=== PATIENT | male | born 1990 | race Caucasian/White ===

== ENCOUNTER 2017-07-05 19:20 | Emergency (ER) | payer OTHER ==
--- NOTE | 2017-07-05 19:36 | ED.PDOC ---
History of Present Illness - General Chief Complaint: Upper Extremity Injury Stated Complaint: pain /swelling index finger Time Seen by Provider: 07/05/17 19:29 Source: patient Exam Limitations: no limitations Additional Information: ERROR WRONG FORMAT - History of Present Illness Initial Comments: Chuck Son 26 y/o male stated that oil rig chain snapped and was hit on the right index finger 2 days ago.Had throbbing pain/swelling distal phalanx right index finger. Occurred: other - 2 days ago Allergies/Adverse Reactions: Allergies NO KNOWN ALLERGY Allergy (Unverified 10/13/12 09:15) Home Medications: Ambulatory Orders Ibuprofen 800 mg PO TID #30 tab 07/05/17 Family Medical History - Family History Father Family History: Unknown Departure - Departure Clinical Impression: Fracture, finger, distal phalanx Qualifiers: Encounter type: initial encounter Finger: index finger Fracture type: closed Fracture alignment: nondisplaced Laterality: right Qualified Code(s): S62.660A - Nondisplaced fracture of distal phalanx of right index finger, initial encounter for closed fracture Condition: Good Instructions: Finger Fracture, DI for Finger Fracture Prescriptions: Ibuprofen 800 mg PO TID #30 tab Home Medications: Ambulatory Orders Ibuprofen 800 mg PO TID #30 tab 07/05/17 Additional Instructions: Need to follow up with work russell Zambrano/Orthopedist in am 07/05/2017 make appointment am OFF WORK UNTIL RELEASED BY WORKERS RUSSELL ZAMBRANO
--- NOTE | 2017-07-05 19:40 | ED.PDOC ---
History of Present Illness - General Chief Complaint: Upper Extremity Injury Stated Complaint: pain /swelling index finger Time Seen by Provider: 07/05/17 19:29 Source: patient Exam Limitations: no limitations - History of Present Illness Initial Comments: Harry Son 26 y/o male stated oil rig chain came loose and was struck on his right index finger 2 days ago at work.Had throbbing pain/swelling after the incident.No other bodily injuries. Occurred: other - 2 days ago Pain - Upper Extremity: moderate: Hand, right - right index finger Method of Injury: other - see hpi Improving Factors: nothing Worsening Factors: movement Allergies/Adverse Reactions: Allergies NO KNOWN ALLERGY Allergy (Unverified 10/13/12 09:15) Home Medications: Ambulatory Orders RX: Ibuprofen 800 mg PO TID #30 tab 07/05/17 Review of Systems - Review of Systems Constitutional: States: no symptoms reported EENTM: States: no symptoms reported Respiratory: States: no symptoms reported Musculoskeletal: States: see HPI, other - finger swelling right index All other Systems: Reviewed and Negative, No Change from Baseline Past Medical History (General) - Patient Medical History Hx Seizures: No Hx Asthma: No Hx Diabetes: No Family Medical History - Family History Father Family History: Unknown Physical Exam - Physical Exam General Appearance: Alert, Comfortable, No apparent distress Eyes, Ears, Nose, Throat Exam: normal ENT inspection Neck: full range of motion, supple Cardiovascular/Respiratory: regular rate, rhythm, no M/R/G, normal peripheral pulses, normal breath sounds Abdominal Exam: non-tender, no organomegaly Shoulder Exam: normal inspection, non-tender, no evidence of injury Elbow/Forearm Exam: normal inspection, non-tender, no evidence of injury Wrist Exam: normal inspection, non-tender, no evidence of injury Hand Exam: bone tenderness - right index finger, limited ROM - painful, nail injury - NONE, swelling - right index finger Neuro/Tendon: normal sensation, normal motor functions, normal tendon functions Mental Status: alert, oriented x 3 Skin Exam: normal color, warm/dry Progress - Progress Progress: 07/05/17 19:46 Last Vital Signs Temp 98.2 F 07/05/17 19:32 Pulse 72 07/05/17 19:32 Resp 16 07/05/17 19:32 BP 136/80 07/05/17 19:32 Pulse Ox 98 07/05/17 19:32 Procedures - Splinting Right 2nd Digit Hand Pre-Made Type: aluminum Splint: finger Pre-Proc Neuro Vasc Exam: normal Post-Proc Neuro Vasc Exam: normal Departure - Departure Clinical Impression: Fracture, finger, distal phalanx Qualifiers: Encounter type: initial encounter Finger: index finger Fracture type: closed Fracture alignment: nondisplaced Laterality: right Qualified Code(s): S62.660A - Nondisplaced fracture of distal phalanx of right index finger, initial encounter for closed fracture Time of Disposition: 20:10 Condition: Good Instructions: Finger Fracture, DI for Finger Fracture Prescriptions: RX: Ibuprofen 800 mg PO TID #30 tab Home Medications: Ambulatory Orders RX: Ibuprofen 800 mg PO TID #30 tab 07/05/17 Additional Instructions: Need to follow up with work russell Zambrano/Orthopedist in am 07/05/2017 make appointment am OFF WORK UNTIL RELEASED BY WORKERS RUSSELL ZAMBRANO
--- NOTE | 2017-07-05 20:00 | RAD ---
EXAM DESCRIPTION: Hand,Right 3 Views CLINICAL HISTORY: pain /swelling right index finger COMPARISON: None FINDINGS: AP, lateral and oblique views of the right hand were submitted. There is an acute nondisplaced fracture at the base of the distal phalanx of the second digit, dorsal and ulnar side. Bone mineralization is within normal limits. There is no radiopaque foreign body material. IMPRESSION: Nondisplaced fracture at the base of the distal phalanx of the second digit. Electronically signed by: Juan Barone MD 07/05/2017 7:59 PM [facility]
[2017-07-05] MEDS ORDERED: IBUPROFEN 200 MG TAB PO ONE (20:10)
[2017-07-05 20:30] VITALS: BP 138/86; TEMP 97.2; O2SAT 96
== END 2017-07-05 20:30 | disposition home or self-care (01) ==
LOC: ER 19:20
DX: S62.660A Nondisplaced fracture of distal phalanx of right index finger, initial encounter for closed fracture (principal); W22.8XXA Striking against or struck by other objects, initial encounter; Y92.65 Oil rig as the place of occurrence of the external cause; Y99.0 Civilian activity done for income or pay